=== PATIENT | female | born 1980 | race African-American/Black ===

== ENCOUNTER → 2022-09-28 | Outpatient (CLI) | payer OTHER, SELFPAY | LOC: M WHC 07:47 | PROVIDERS: ATTEND Nurse Practitioner Primary Care | DX: Z12.31 Encounter for screening mammogram for malignant neoplasm of breast (principal) ==

== ENCOUNTER 2025-02-26 16:19 | Observation (INO) | payer OTHER ==
[2025-02-26] VITALS (8 sets, daily range): BP systolic 117–143; BP diastolic 67–83; TEMP 98.5–99.4; O2SAT 100
[~2025-02-26] VITALS: Ht 162.6 cm; Wt 64.5 kg
[2025-02-26 17:06] LABS: BASO % 0.3 % (0.0-1.0); EOS % 0.4 % (0.0-3.0); LYMPH # 1.1 10^3/uL (1.5-5.0); MEAN CORPUSCULAR HGB CONC 25.3 g/dl (32.0-36.5); MEAN CORPUSCULAR VOLUME 59.2 fl (80.0-96.0); MONO # 0.4 10^3/uL (0.0-0.8); MONO % 4.9 % (2.0-8.0); NEUTROPHILS # 5.6 10^3/uL (1.5-8.5); PLATELET COUNT, AUTOMATED 497 10^3/uL (150-450); RED BLOOD COUNT 3.14 10^6/uL (4.00-5.40); WHITE BLOOD COUNT 7.1 10^3/uL (4.0-10.0)
[2025-02-26 17:11] LABS: HEMOGLOBIN 4.7 g/dl (12.0-15.5)
[2025-02-26 17:12] LABS: HEMATOCRIT 18.6 % (36.0-47.0)
[2025-02-26 17:28] LABS: BLOOD UREA NITROGEN 9 MG/DL (9-23); CALCIUM LEVEL 8.2 MG/DL (8.5-10.1); CARBON DIOXIDE LEVEL 24 MMOL/L (20-31); CHLORIDE LEVEL 109 MMOL/L (98-107); CREATININE FOR GFR 0.63 MG/DL (0.55-1.30); GLOMERULAR FILTRATION RATE > 60.0 (>58); GLUCOSE, FASTING 87 MG/DL (60-100); POTASSIUM SERUM 3.7 MMOL/L (3.5-5.1); SODIUM LEVEL 141 MMOL/L (136-145)
[2025-02-26] MEDS ORDERED: ACETAMINOPHEN 325 MG TAB PO PRN (17:50)
[2025-02-26] MEDS ORDERED: MOM 30ML SUSPENSION UDC PO PRN (17:50)
[2025-02-26] MEDS ORDERED: MAALOX 30 ML SUSP *UDC PO PRN (17:50)
[2025-02-26] MEDS ORDERED: HOME MED LIST COMPLETE! XX SCH (18:15)
[2025-02-26 18:34] LABS: INR 1.35
[2025-02-26 18:43] LABS: IRON (FE) < 5 UG/DL (50-170); LDH LACTATE DEHYDROGENASE 142 U/L (120-246)
[2025-02-26 18:44] LABS: ALBUMIN 3.3 G/DL (3.2-5.2); ALKALINE PHOSPHATASE 52 U/L (35-104); ALT/SGPT 14 U/L (7.0-40); AST/SGOT 12 U/L (<34); BILIRUBIN,DIRECT 0.1 MG/DL (<0.4); BILIRUBIN,TOTAL 0.3 MG/DL (0.3-1.2); PERCENT SATURATION 1.4 % (13.2-45.0); TOTAL IRON BINDING CAPACITY 360 UG/DL (250-425); TOTAL PROTEIN 6.3 G/DL (5.7-8.2)
[2025-02-26 18:45] LABS: VITAMIN B12 LEVEL 330 PG/ML (211-911)
[2025-02-26 18:46] LABS: FERRITIN < 0.9 NG/ML (7.3-270.7); FOLATE 12.14 NG/ML (>5.4)
[2025-02-26] MEDS: DOCUSATE SODIUM 100MG CAPSULE PO SCH (21:06)
[2025-02-26 22:33] LABS: HCG, SERUM QUANTITATIVE < 2.6 MIU/ML (<4.2)
[2025-02-27 00:15] VITALS: BP 131/79; TEMP 99; O2SAT 100
[2025-02-27 01:14] VITALS: BP 137/78; TEMP 98.6; O2SAT 100
[2025-02-27 01:30] VITALS: BP 137/77; TEMP 98.4; O2SAT 100
[2025-02-27 02:00] VITALS: BP 127/76; TEMP 98.4; O2SAT 100
[2025-02-27 02:53] VITALS: TEMP 98.6
[2025-02-27 03:30] VITALS: BP 123/62; TEMP 98.8; O2SAT 100
[2025-02-27] MEDS ORDERED: FERRIC CARBOXYMALTOSE INJ 750 MG, VIAL MATE ADAPTER 1 EACH in NS 100 ML IV ONE (06:00)
[2025-02-28 10:38] LABS: TRANSFERRIN 291 mg/dL (188-341)
[2025-03-03 10:57] LABS: HEMOGLOBINOPATHY EVAL HGB 4.3 g/dL (11.7-15.5); HEMOGLOBINOPATHY EVAL HGB A 98.6 % (>96.0); HEMOGLOBINOPATHY EVAL HGB A2 1.4 % (2.0-3.2); HEMOGLOBINOPATHY EVAL MCH 14.5 pg (27.0-33.0); HEMOGLOBINOPATHY EVAL MCV 64.2 fL (80.0-100.0); HEMOGLOBINOPATHY EVAL RBC 2.96 Mill/uL (3.80-5.10); HEMOGLOBINOPATHY EVAL RDW 25.4 % (11.0-15.0)
== END 2025-02-27 03:59 | disposition home or self-care (01) ==
LOC: M ED 16:19 → M ED INP 16:20
PROVIDERS: ADMIT Internal Medicine; ATTEND Internal Medicine
DX: D64.9 Anemia, unspecified (principal); D75.839 Thrombocytosis, unspecified
CPT/HCPCS: 36430; 76856; 80048; 80076; 82607; 82728; 82746; 83010; 83020; 83540; 83550; 83615; 84466; 84702; 85025; 85046; 85610; 85660; 86850; 86900; 86901; 86920; 93976; 99285; P9016

== ENCOUNTER 2025-03-23 07:45 | Outpatient (CLI) | payer OTHER ==
[~2025-03-23] VITALS: Ht 162.6 cm; Wt 65.9 kg
[~2025-03-23 07:45] MED LIST: ALBUTEROL SULFATE 2.5MG/0.5ML INH CONCENTRATE NEB SOLN INH PRN; EPINEPHrine INJ 1 MG/ML 1ML AMP IM PRN; diphenhydrAMINE 50MG/ML VIAL IV PRN; methylPREDNISolone 125MG 2ML VIAL IV PRN
[2025-03-23 08:00] VITALS: BP 122/71; O2SAT 98
[2025-03-23] MEDS: FERRIC CARBOXYMALTOSE 750 MG (VIAL MATE) IN 100ML NS IV ONE (08:12)
[2025-03-23] MEDS ORDERED: MULTTAB20 PO (08:17)
[2025-03-23] MEDS ORDERED: VITA100065 PO (08:17)
[2025-03-23] MEDS ORDERED: VITAMIN B 12 PO (08:17)
[2025-03-23 09:15] VITALS: BP 122/71; O2SAT 100
== END 2025-03-23 09:15 | disposition home or self-care (01) ==
LOC: M INFU 07:45
PROVIDERS: ATTEND Internal Medicine
DX: D50.9 Iron deficiency anemia, unspecified (principal)
CPT/HCPCS: 96365; J1439

== ENCOUNTER 2025-03-30 08:17 | Outpatient (CLI) | payer OTHER ==
[~2025-03-30] VITALS: Ht 160 cm; Wt 63.0 kg
[~2025-03-30 08:17] MED LIST changes: +MULTTAB20 PO; +VITA100065 PO; +VITAMIN B 12 PO
[2025-03-30 08:30] VITALS: BP 124/69; O2SAT 100
[2025-03-30] MEDS: FERRIC CARBOXYMALTOSE 750 MG (VIAL MATE) IN 100ML NS IV ONE (08:36)
[2025-03-30 09:10] VITALS: BP 125/63; O2SAT 100
== END 2025-03-30 09:10 ==
LOC: M INFU 08:17
PROVIDERS: ATTEND Internal Medicine
DX: D50.9 Iron deficiency anemia, unspecified (principal)
CPT/HCPCS: 96365; J1439

== ENCOUNTER 2025-06-12 09:19 | Observation (INO) | payer OTHER ==
[~2025-06-12] VITALS: Ht 162.6 cm; Wt 66.1 kg
[2025-06-12] MEDS: KETOROLAC 30 MG/ML 1 ML VIAL IV ONE (06:00)
[2025-06-12] MEDS: ACETAMINOPHEN *IV* 1,000 MG in IV 1 EA IV ONE (06:00)
[~2025-06-12 09:19] MED LIST changes: -ALBUTEROL SULFATE 2.5MG/0.5ML INH CONCENTRATE NEB SOLN INH PRN; +B-12100010 PO; -EPINEPHrine INJ 1 MG/ML 1ML AMP IM PRN; +FERR325T19 PO; +LIDOCAINE 2% 100 MG/5 ML SDV (FOR ANES.) As Ordered ONE; +MIDAZOLAM INJ 2 MG/2 ML VIAL As Ordered ONE; +ROCURONIUM BROMIDE 50MG/5ML VIAL As Ordered ONE; -diphenhydrAMINE 50MG/ML VIAL IV PRN; -methylPREDNISolone 125MG 2ML VIAL IV PRN
[2025-06-12] MEDS: LR 1,000 ML IV SCH ×2 (09:30→17:01)
[2025-06-12 10:11] LABS: PLATELET COUNT, AUTOMATED 179 10^3/uL (150-450)
[2025-06-12] MEDS: ceFAZolin SOD 2 GM IV ONCE IV ONE (10:32)
[2025-06-12] MEDS: METHYLENE BLUE 0.5% (5 MG/ML) 10 ML AMP As Ordered ONE (10:43)
[2025-06-12] MEDS: metroNIDAZOLE 500 MG in IV 1 EA IV ONE (11:10)
[2025-06-12] MEDS ORDERED: dexAMETHasone 4 MG/ML 1 ML VIAL As Ordered ONE (11:11)
[2025-06-12] MEDS ORDERED: ACETAMINOPHEN 1000MG/100ML IV BAG As Ordered ONE (11:17)
[2025-06-12] MEDS ORDERED: HYDROmorphone HCL 2 MG/ML 1 ML VIAL As Ordered ONE (11:17)
[2025-06-12] MEDS ORDERED: SUGAMMADEX SODIUM 200 MG/2 ML VIAL As Ordered ONE (11:20)
[2025-06-12] MEDS ORDERED: ONDANSETRON 4MG 2ML VIAL As Ordered ONE (11:20)
[2025-06-12] MEDS ORDERED: KETOROLAC 30 MG/ML 1 ML VIAL As Ordered ONE (11:20)
[2025-06-12] MEDS: TRANEXAMIC ACID 100 MG/ML 10ML VIAL As Ordered ONE (11:36)
[2025-06-12] MEDS ORDERED: LABETALOL 100 MG/20 ML VIAL As Ordered ONE (11:43)
[2025-06-12] MEDS ORDERED: ONDANSETRON 4MG 2ML VIAL IV PRN (15:05)
[2025-06-12] MEDS ORDERED: GABAPENTIN 100 MG CAP PO PRN (15:05)
[2025-06-12] MEDS: HYDROMORPHONE HCL 0.5 MG/0.5 ML SYRINGE IV PRN (15:56)
[2025-06-12] MEDS: ONDANSETRON 4MG 2ML VIAL IV PRN (15:57)
[2025-06-12 16:32] VITALS: BP 130/68; TEMP 97.7; O2SAT 94
[2025-06-12] MEDS: KETOROLAC 30 MG/ML 1 ML VIAL IV SCH (17:42)
[2025-06-12] MEDS: ACETAMINOPHEN 500 MG TAB PO SCH (17:43)
[2025-06-12 18:00] VITALS: BP 134/82; TEMP 98.8; O2SAT 99
[2025-06-12] MEDS ORDERED: HOME MED LIST COMPLETE! XX SCH (18:00)
[2025-06-12 18:53] VITALS: BP 117/66; TEMP 97.8; O2SAT 98
[2025-06-12] MEDS: DOCUSATE SODIUM 100 MG CAPSULE PO SCH (19:41)
[2025-06-12] MEDS: MIRALAX *UNIT DOSE* 17 GM PACKET PO SCH (19:41)
[2025-06-12 20:00] VITALS: BP 140/73; TEMP 97.2; O2SAT 100
[2025-06-12] MEDS: METOCLOPRAMIDE 10 MG TAB PO PRN (20:12)
[2025-06-12 23:34] VITALS: BP 124/70; TEMP 97; O2SAT 100
[2025-06-13 04:00] VITALS: BP 117/65; TEMP 98; O2SAT 100
[2025-06-13 07:18] LABS: BASO # 0.0 10^3/uL (0.0-0.2); BASO % 0.2 % (0.0-1.0); EOS # 0.0 10^3/uL (0.0-0.5); EOS % 0.1 % (0.0-3.0); LYMPH # 1.5 10^3/uL (1.5-5.0); LYMPH % 11.1 % (24.0-44.0); MONO # 0.9 10^3/uL (0.0-0.8); MONO % 6.4 % (2.0-8.0); NEUTROPHILS # 10.9 10^3/uL (1.5-8.5); NEUTROPHILS % 81.9 % (36.0-66.0); PLATELET COUNT, AUTOMATED 193 10^3/uL (150-450)
[2025-06-13 08:00] VITALS: BP 121/62; TEMP 99.1; O2SAT 100
[2025-06-13 12:00] VITALS: BP 124/60; TEMP 98.4; O2SAT 100
== END 2025-06-13 13:20 | disposition home or self-care (01) ==
LOC: M SDC 09:19 → M RR INP 09:20 → M OBS 16:32
PROVIDERS: ADMIT Obstetrics & Gynecology; ATTEND Obstetrics & Gynecology
DX: D25.9 Leiomyoma of uterus, unspecified (principal); N80.03 Adenomyosis of the uterus; D64.9 Anemia, unspecified; Q62.5 Duplication of ureter; Z88.8 Allergy status to other drugs, medicaments and biological substances; N93.9 Abnormal uterine and vaginal bleeding, unspecified
CPT/HCPCS: 36415; 58180; 81025; 85025; 85027; 86850; 86900; 86901; 86920; 88307; 96361; 96374; 96376; C1765; J0131; J0665; J0690; J1100; J1171; J1836; J1885; J1920; J2250; J2405; J2765; J3010